=== PATIENT | male | born 1950 | race Caucasian/White ===

== ENCOUNTER 2016-07-08 03:05 | Emergency (ER) | payer BC ==
[2016-07-08 02:26] LABS: BASOPHILS 0.7 %; BASOPHILS ABSOLUTE 0.06 10/3/uL (0.0-0.16); EOSINOPHILS 2.3 %; ER CBC TAT 0 Hrs 09 Mins; HEMATOCRIT 39.4 % (40.0-51.0); HEMOGLOBIN 13.6 g/dL (13.6-17.8); IMMATURE GRANULOCYTES 0.2 %; IMMATURE GRANULOCYTES ABSOLUTE 0.02 10/3/uL (0.0-0.11); LYMPHOCYTES 19.1 %; LYMPHOCYTES ABSOLUTE 1.64 10/3/uL (0.67-4.30); MEAN CORPUS HGB CONC 34.5 g/dL (32.0-36.0); MEAN CORPUSCULAR HEMOGLOB 32.7 pg (26.0-34.0); MEAN CORPUSCULAR VOLUME 94.7 fL (80-100); MEAN PLATELET VOLUME 11.1 fL (9.2-13.0); MONOCYTES 9.5 %; MONOCYTES ABSOLUTE 0.82 10/3/uL (0.21-1.20); NEUTROPHILS 68.2 %; NEUTROPHILS ABSOLUTE 5.86 10/3/uL (2.02-8.40); PLATELET COUNT 266 10/3/uL (150-400); RBC DISTRIBUTION WIDTH 13.4 % (12.0-16.0); RED CELL COUNT 4.16 10/6/uL (4.7-6.1); WHITE BLOOD CELLS 8.6 10/3/uL (4.5-10.5)
[2016-07-08 02:28] LABS: MANUAL DIFF NO %
[2016-07-08 02:41] LABS: LACTATE 1.9 MMOL/L (0.3-2.4)
[2016-07-08 02:45] LABS: ALBUMIN 3.6 G/DL (3.5-5.0); CALCIUM, SERUM 9.3 MG/DL (8.5-10.4); CHLORIDE, SERUM 109 MMOL/L (96-112); CO2 (CARBON DIOXIDE) 25 MMOL/L (24-34); CREATININE 0.93 MG/DL (0.70-1.30); GFR AFRICAN AMERICAN 99 ML/MIN (>=60); GFR NON AFRICAN AMERICAN 85 ML/MIN (>=60); GLUCOSE, SERUM 113 MG/DL (60-99); POTASSIUM, SERUM 4.5 MMOL/L (3.5-5.3); SGOT(AST) 26 U/L (5-40); SGPT(ALT) 25 U/L (5-65); SODIUM, SERUM 145 MMOL/L (135-148); TOTAL BILIRUBIN 0.2 MG/DL (0-1.2); TOTAL PROTEIN 7.5 G/DL (6.0-8.5)
[2016-07-08 02:51] LABS: A/G RATIO 0.9 (0.7-1.9); ALKALINE PHOSPHATASE 75 U/L (45-117); BUN (BLOOD UREA NITROGEN) 26 MG/DL (6-23); GLOBULIN 3.9 G/DL (2.5-4.1)
[~2016-07-08 03:05] MED LIST: AMIT25 PO; BAC PO; BEN25 PO; CENTRUM TAB1 TAB PO; CIP5 PO; CITRACEL; CYMBALTA60 PO; DSS PO; EXELON9.5T TOP; KLONO5 PO; MAGNESIUM COMPLEX PO; METAMUCIL CAN7 OZ PO; MIRALAXPKT PO; MIRAPEX0.75 MG PO; MIRAPEX1.5 MG PO; MULTIVITAMI1 PO; NEUPRO 4MG4 MG/24 HR TOP; NEUR300 PO; PEPCID COMPLETE PO; PRILOSEC OTC20 MG PO; SEROQUEL50 MG PO; SIN25 PO; V5 PO; VITAMIN C PO; VITAMIN E PO; VITC500 PO
== END 2016-07-08 06:29 | disposition home or self-care (01) ==
LOC: ER 03:05
PROVIDERS: Physician Assistant
DX: E11.621 Type 2 diabetes mellitus with foot ulcer (principal); L97.529 Non-pressure chronic ulcer of other part of left foot with unspecified severity; Z87.442 Personal history of urinary calculi; Z85.46 Personal history of malignant neoplasm of prostate; Z88.1 Allergy status to other antibiotic agents; Z88.8 Allergy status to other drugs, medicaments and biological substances; Z91.018 Allergy to other foods; Z79.899 Other long term (current) drug therapy
CPT/HCPCS: 73630-LT; 80053; 83605; 85025; 87040; 87070; 87077; 87186; 87205; 96365; 96367; 99283; A9270-GY; J2543; J3370